=== PATIENT | female | born 1950 | race Caucasian/White ===

== ENCOUNTER 2017-04-16 18:53 | Emergency (ER) | payer OTHER ==
[~2017-04-16] VITALS: Ht 167.6 cm; Wt 83.0 kg
[~2017-04-16 18:53] MED LIST: ALBIPROI INH; ALBU90OI INH; AMLO5 PO; AMOX500 PO; ASPI325EC PO; ASPI81CH PO; AZIT500 PO; BENZ100A PO; FURO20 PO; HYDACE5 PO; HYDCHL12.5; IBUP800 PO; LEVSOD125 PO; LISHYD2025 PO; LISI20 PO; LORCET PLUS 7.1 EACH; METO50ER PO; MULVITMINF PO; Mucinex600 MG PO; Norco 5-325 Ta1 EACH PO; ONDA4 PO; PHENA200 PO; POTCHL20ER PO; PRED20 PO; TELM40; [UNRECOGNIZED DRUG - OTHER] PO
[2017-04-16] MEDS ORDERED: SUBOXONE 8 MG-1 EACH SL (19:21)
== END 2017-04-16 21:01 | disposition home or self-care (01) ==
LOC: ER 18:53
DX: M79.605 Pain in left leg (principal); R22.42 Localized swelling, mass and lump, left lower limb; Z88.1 Allergy status to other antibiotic agents; Z88.2 Allergy status to sulfonamides; Z79.899 Other long term (current) drug therapy; Z79.82 Long term (current) use of aspirin; I10 Essential (primary) hypertension; I25.2 Old myocardial infarction; E03.9 Hypothyroidism, unspecified
CPT/HCPCS: 93971; 99284

== ENCOUNTER 2024-06-10 06:34 | Day surgery (SDC) | payer OTHER ==
[~2024-06-10] VITALS: Ht 167.6 cm; Wt 100.8 kg
[~2024-06-10 06:34] MED LIST changes: +Balanced Salt Epinephrine Irrigation Solution 500 mL IR SCH; +Lidocaine HCl/Pf 1% 5 ML VIAL XX SCH; +Moxifloxacin HCL 0.5 MG/0.1 ML 0.4MLSYR RIGHTEYE SCH; +PHENYLEPHRINE\\TROPICAMIDE\\TETRACAINE OPHTHALMIC DILATING SOLN RIGHTEYE PRN; +Povidone-Iodine 450 DROP/30 ML Solution ONE; +Povidone-Iodine 450 DROP/30 ML Solution RIGHTEYE SCH; +SUBOXONE 8 MG-1 EACH SL; +Tetracaine HCl/Pf 0.5% Opth Soln 4 ml ONE; +Triamcinolone Inj Susp 40 MG / ML 1ML Vial INJ SCH
[2024-06-10] MEDS ORDERED: Triamcinolone Inj Susp 40 MG / ML 1ML Vial ONE (06:45)
[2024-06-10] MEDS ORDERED: Lovastatin20 MG (07:04)
[2024-06-10] MEDS ORDERED: Midazolam HCl 1MG / ML 2ML Vial ONE (07:59)
[2024-06-10 08:26] VITALS: BP 149/75
== END 2024-06-10 08:35 | disposition home or self-care (01) ==
LOC: ORSCSDS 06:34
PROVIDERS: Ophthalmology
PROC: 08RJ3JZ Replacement of Right Lens with Synthetic Substitute, Percutaneous Approach (ICD-10-PCS; principal; 2024-06-10 08:00)
DX: H25.813 Combined forms of age-related cataract, bilateral (principal); I10 Essential (primary) hypertension; I25.2 Old myocardial infarction; G47.33 Obstructive sleep apnea (adult) (pediatric); I25.10 Atherosclerotic heart disease of native coronary artery without angina pectoris; E78.00 Pure hypercholesterolemia, unspecified; Z79.82 Long term (current) use of aspirin; Z79.899 Other long term (current) drug therapy
CPT/HCPCS: J2250; J3301; V2632

== ENCOUNTER 2024-06-18 06:03 | Day surgery (SDC) | payer OTHER ==
[~2024-06-18] VITALS: Ht 170.2 cm; Wt 100.7 kg
[~2024-06-18 06:03] MED LIST changes: +Lovastatin20 MG; +Moxifloxacin HCL 0.5 MG/0.1 ML 0.4MLSYR LEFTEYE SCH; -Moxifloxacin HCL 0.5 MG/0.1 ML 0.4MLSYR RIGHTEYE SCH; +PHENYLEPHRINE\\TROPICAMIDE\\TETRACAINE OPHTHALMIC DILATING SOLN LEFTEYE PRN; -PHENYLEPHRINE\\TROPICAMIDE\\TETRACAINE OPHTHALMIC DILATING SOLN RIGHTEYE PRN; +Povidone-Iodine 450 DROP/30 ML Solution LEFTEYE SCH; -Povidone-Iodine 450 DROP/30 ML Solution RIGHTEYE SCH
[2024-06-18] MEDS ORDERED: Triamcinolone Inj Susp 40 MG / ML 1ML Vial ONE (06:52)
[2024-06-18] MEDS ORDERED: Lidocaine HCl/Pf 1% 5 ML VIAL ONE (06:52)
--- NOTE | 2024-06-18 06:54 | NUR ---
06/18/24 0654 Harrison Mack TETRACAINE ADMINISTERED AT 0636, PLEDGET PLACED AT 0639.
[2024-06-18] MEDS ORDERED: Midazolam HCl 1MG / ML 2ML Vial ONE (07:26)
[2024-06-18 07:57] VITALS: BP 140/75
--- NOTE | 2024-06-18 08:10 | NUR ---
06/18/24 0810 Marisela Wood D/C INSTRUCTIONS GIVEN TO PT, UNDERSTANDING VERBALIZED. PT GOING HOME W/ ALL BELONGINGS, INCLUDING PURSE & JACKET. EYE KIT PROVIDED. PT WHEELED TO PRIVATE VEHICLE, STEADY GAIT NOTED UPON TRANSFER FROM TO VEHICLE. NO VISIBLE SIGNS OF DISTRESS NOTED.
== END 2024-06-18 08:08 | disposition home or self-care (01) ==
LOC: ORSCSDS 06:03
PROVIDERS: Ophthalmology
PROC: 08RK3JZ Replacement of Left Lens with Synthetic Substitute, Percutaneous Approach (ICD-10-PCS; principal; 2024-06-18 07:30)
DX: H25.812 Combined forms of age-related cataract, left eye (principal); Z96.1 Presence of intraocular lens; I25.10 Atherosclerotic heart disease of native coronary artery without angina pectoris; I10 Essential (primary) hypertension; G47.33 Obstructive sleep apnea (adult) (pediatric); I25.2 Old myocardial infarction; E78.00 Pure hypercholesterolemia, unspecified; Z79.82 Long term (current) use of aspirin; Z79.899 Other long term (current) drug therapy
CPT/HCPCS: J2003; J2250; J3301; V2632

== ENCOUNTER 2024-11-24 10:43 | Day surgery (SDC) | payer OTHER ==
[2024-11-05 09:37] VITALS: BP 152/63
[~2024-11-24] VITALS: Ht 163 cm; Wt 102.1 kg
[2024-11-24] VITALS (10 sets, daily range): BP systolic 135–1568; BP diastolic 58–81
[~2024-11-24 10:43] MED LIST changes: -Balanced Salt Epinephrine Irrigation Solution 500 mL IR SCH; +LEVSOD137 PO; -Lidocaine HCl/Pf 1% 5 ML VIAL XX SCH; -Lovastatin20 MG; +Lovastatin20 MG PO; -Moxifloxacin HCL 0.5 MG/0.1 ML 0.4MLSYR LEFTEYE SCH; -PHENYLEPHRINE\\TROPICAMIDE\\TETRACAINE OPHTHALMIC DILATING SOLN LEFTEYE PRN; -Povidone-Iodine 450 DROP/30 ML Solution LEFTEYE SCH; -Povidone-Iodine 450 DROP/30 ML Solution ONE; -Tetracaine HCl/Pf 0.5% Opth Soln 4 ml ONE; -Triamcinolone Inj Susp 40 MG / ML 1ML Vial INJ SCH
[2024-11-24] MEDS ORDERED: Ropivacaine 0.5% HCl/Pf 123.125 MG,EPINEPHrine HCL 0.25 MG,Ketorolac Tromethamine 15 MG... INFIL SCH (11:50)
[2024-11-24] MEDS ORDERED: Chlorhexidine Mouth Care 15 ML UDC MT SCH (11:50)
[2024-11-24] MEDS ORDERED: CeFAZolin Sodium 2,000 MG in NS 100 ML IV SCH ×2 (11:50→22:00)
[2024-11-24] MEDS ORDERED: Tranexamic Acid 100 ML IV SCH (11:50)
[2024-11-24] MEDS ORDERED: Morphine Sulfate 4 MG/1 ML Injection IV PRN (13:00)
[2024-11-24] MEDS ORDERED: ePHEDrine Sulfate 50 MG/ML 1ML Injection IV PRN (13:00)
[2024-11-24] MEDS ORDERED: FentaNYL Citrate 50 MCG/ML 2 ML Injection IV PRN ×2 (13:00→13:05)
[2024-11-24] MEDS ORDERED: HYDROmorphone HCl/Pf 1MG SYR IV PRN ×2 (13:05→13:45)
[2024-11-24] MEDS ORDERED: Mobic15 MG PO (13:29)
[2024-11-24] MEDS ORDERED: ALBU90OI INH (13:30)
[2024-11-24] MEDS ORDERED: Magnesium Hydroxide Conc 10 ML UDC PO PRN (13:40)
[2024-11-24] MEDS ORDERED: Ondansetron HCl 2 MG / ML 2ML Vial IV PRN (13:40)
[2024-11-24] MEDS ORDERED: Metoclopramide HCl 5MG / ML 2ML Vial IV PRN (13:40)
[2024-11-24] MEDS ORDERED: HYDROcodone 5-APAP 325 TAB PO PRN (13:45)
[2024-11-24] MEDS ORDERED: Ondansetron HCl 2 MG / ML 2ML Vial ONE (13:51)
[2024-11-24] MEDS ORDERED: FentaNYL Citrate 50 MCG/ML 2 ML Injection ONE (13:51)
[2024-11-24] MEDS ORDERED: Midazolam HCl 1MG / ML 2ML Vial ONE (13:51)
[2024-11-24] MEDS ORDERED: HYDROmorphone HCl/Pf 1MG SYR ONE (13:51)
[2024-11-24] MEDS ORDERED: Metoclopramide HCl 5MG / ML 2ML Vial ONE (13:51)
--- NOTE | 2024-11-24 13:57 | NUR ---
History, Chart, Medications and Allergies reviewed before start of procedure. Pre-Op teaching done. Pt verbalizes understanding. Patient confirms NPO status and agrees with scheduled surgery. Patient reports completing Chlorhexadine shower X2 prior to admission to hospital. Surgical site prepped with 2% Chlorhexidine cloth wipe. Patient States Post-Procedure ride home has been arranged.
[2024-11-24] MEDS ORDERED: Magnesium Sulfate 500 MG / ML 2ML Vial ONE (14:23)
[2024-11-24] MEDS ORDERED: ePHEDrine Sulfate 50 MG/ML 1ML Injection ONE (14:50)
[2024-11-24] MEDS ORDERED: Phenylephrine HCl 100 MCG/ML-NS 10MLSYR (1MG/10ML) ONE (15:59)
--- NOTE | 2024-11-24 16:29 | NUR ---
PT TO PACU W ANESTHESIA. VSS ON RA. DENIES PAIN. MILD PEDAL EDEMA, (+) PULSES. DSG CDI BS FOR 557, STRAIGHT CATH BY PACU CONURSES FOR 600. XRAY COMPLETED. PT RUNNING SINUS TACH LOW 100S, OCCASIONAL IRREGULARITIES. PT DENIES CHEST PAIN. ANESTHESIA INFORMED, PER DR. De La Rosa LIKELY R/T EPHEDRINE AND LIDOCAINE. SPINAL PROGRESSING, PT WIGGLING FEET FROM ANKLES, NO C/O PAIN. POLAR CARE APPLIED
--- NOTE | 2024-11-24 16:54 | NUR ---
ARRIVAL NOTE: PT ARRIVES TO UNIT VIA BED. THIS RN AND TRANSPORTING RN VISUALIZED THE SURGIACL SITE, DRESSING C/D/I. PAIN MANAGED. FAMILY UPDATED, SEE CHARTED ASSESSMENT
[2024-11-24] MEDS ORDERED: Albuterol HFA200 ACT/6.7 GM INH INH PRN (17:25)
[2024-11-24] MEDS ORDERED: Ketorolac Tromethamine 15mg Vial IV SCH (18:00)
[2024-11-24] MEDS ORDERED: ELIQUIS2.5 MG PO (18:01)
--- NOTE | 2024-11-24 18:58 | NUR ---
DISCHARGE NOTE: PT AND FAMILY EDUCATED ON DISCHARGE INSTRUCTIONS AND FOLLOW UP CARE. THEY STATE UNDERSTANDING AND DENIE ANY QUESTIONS. PT IS TOLERATING PO INTAKE, VOIDING, AND AMBULATING. PAIN IS MANAGED WITH PRESCRIBED MEDICATIONS-SEE EMAR. PIV REMOVED PRIOR TO DISCHARGE.
[2024-11-24] MEDS ORDERED: Levothyroxine Sodium 0.137 MG Tab PO SCH (21:00)
[2024-11-24] MEDS ORDERED: Buprenorphine HCL/Naloxone HCL 8MG-2MG Tab SL SCH (21:00)
[2024-11-25] MEDS ORDERED: Potassium Chloride 10 Meq Tablet SA PO SCH (09:00)
== END 2024-11-24 18:53 | disposition home or self-care (01) ==
LOC: ORSCMMR 10:43 → ORD 12:30 → ORSCMMR 12:30 → ORD 13:45 → SURS 16:45 → ORSCMMR 18:53
PROVIDERS: Orthopaedic Surgery
PROC: 0SRC0JA Replacement of Right Knee Joint with Synthetic Substitute, Uncemented, Open Approach (ICD-10-PCS; principal; 2024-11-24 12:30)
DX: M17.11 Unilateral primary osteoarthritis, right knee (principal); Z96.652 Presence of left artificial knee joint; I10 Essential (primary) hypertension; I25.10 Atherosclerotic heart disease of native coronary artery without angina pectoris; J44.9 Chronic obstructive pulmonary disease, unspecified; G47.33 Obstructive sleep apnea (adult) (pediatric); E03.9 Hypothyroidism, unspecified; E66.9 Obesity, unspecified; Z68.38 Body mass index [BMI] 38.0-38.9, adult; Z79.899 Other long term (current) drug therapy; Z79.82 Long term (current) use of aspirin; F41.9 Anxiety disorder, unspecified
CPT/HCPCS: 73560-RT; A9270; C1713; C1776; J0166; J0690; J0735; J1171; J1885; J2250; J2371; J2405; J2704; J2765; J2795; J3010; J3373; J3475; J7050; J7120